=== PATIENT | male | born 1990 | race Caucasian/White ===

== ENCOUNTER 2018-07-26 23:09 | Emergency (ER) | payer BC ==
[2018-07-26 23:22] VITALS: TEMP 98.4; BMI 29.8
--- NOTE | 2018-07-27 00:48 | PDOC ---
History of Present Illness - General Chief Complaint: Injury Stated Complaint: RIGHT KNEE AND ANKLE INJURY Time Seen by Provider: 07/27/18 00:40 History Source: Patient Exam Limitations: No Limitations - History of Present Illness Initial Comments: HPI: 28 y/o male presenting to [facility] ER complaining of pain and swelling to right foot and ankle, as well as pain to left heel. Pt jumped over a small wall onto a ramp in an attempt to parkour. [place] pain immediately landing on his feet. He fell to the ground but did not strike his head or neck. Denies LOC. Was able to stand and ambulate after incident. Became concerned with the swelling in the right foot. Has not trialed any OCT medications. PCP: None Medical Hx: - Pt denies past medical history. Denies prescription medications. Surgical Hx: - Pt denies past surgical history. Past History - Past Medical History Allergies/Adverse Reactions: Allergies Allergy/AdvReac Type Severity Reaction Status Date / Time No Known Allergies Allergy Verified 07/26/18 23:15 Home Medications: Ambulatory Orders Naproxen [Naprosyn -] 500 mg PO BID PRN 7 Days #14 tablet 07/27/18 COPD: No - Suicide/Smoking/Psychosocial Hx Smoking History: Never smoked Have you smoked in the past 12 months: No Information on smoking cessation initiated: No Hx Alcohol Use: No Drug/Substance Use Hx: No Review of Systems - Review of Systems Able to Perform ROS?: Yes Comments:: In addition to that documented in the HPI above, the additional ROS was obtained : Constitutional: Denies fevers or chills ENMT: Denies sore throat CV: Denies chest pain Resp: Denies SOB GI: Denies vomiting or diarrhea MSK: Per HPI *Physical Exam - Vital Signs Last Vital Signs Temp Pulse Resp BP Pulse Ox 98.4 F 85 18 133/83 100 07/26/18 23:13 07/26/18 23:13 07/26/18 23:13 07/26/18 23:13 07/26/18 23:13 - Physical Exam Comments: Constitutional: Well-developed, well-nourished adult male in no acute distress or obvious discomfort. Found sitting upright on edge of hospital hallway bed. Alert and oriented x4. Answered all questions appropriately and completely. Speech was non-labored, non-pressured. Head: Normocephalic. No obvious external signs of trauma. Cardiovascular / Chest: Regular rate and regular rhythm. No murmur, rubs, clicks, or gallops. Peripheral pulses: radial pulses full. Respiratory: Breathing unlabored. Equal chest rise and fall. Clear to auscultation bilaterally. No stridor, no wheezing, no rhonchi. Neuro: Alert and oriented. Moving all four extremities spontaneously. Plantar flexion and dorsiflexion 5/5 bilaterally. MSK: Swelling and point tenderness to right medial and lateral malleolus. Point tenderness to dorsal surface of left calcaneus. No open wounds. No obvious deformities to tib/fib on either R or L lower extremity. 2+ dorsalis pedis pulse bilaterally. Psych: Affect: appropriate. Mood: normal. ED Treatment Course - RADIOLOGY Radiology Studies Ordered: Category Date Time Status ANKLE & FOOT-LEFT* [RAD] Stat Radiology 07/27/18 00:48 Ordered ANKLE & FOOT-RIGHT* [RAD] Stat Radiology 07/27/18 00:48 Ordered Medical Decision Making - Medical Decision Making *Reviewed vital signs, nursing notes, and prior visit documentation (if available). 28 y/o male with pain/swelling to right foot and ankle, as well as pain to left heel. Ordered Motrin and ice pack for symptom relief. Will obtain plain films to further evaluate. Plain film of right ankle and foot revealed medial and lateral soft tissue swelling without obvious fractures or dislocation per ED wet read. Radiology report pending. Suspect ankle sprain. Plain film of left ankle and foot revealed possible small chip fracture to calcaneus per ED wet read. Radiology report pending. Will apply yue wrap to both ankles and refer to orthopedics for clinic follow up. Prescribed Naproxen for pain control. *DC/Admit/Observation/Transfer Diagnosis at time of Disposition: Right ankle sprain Qualifiers: Encounter type: initial encounter Involved ligament of ankle: unspecified ligament Qualified Code(s): S93.401A - Sprain of unspecified ligament of right ankle, initial encounter Left calcaneal fracture Qualifiers: Encounter type: initial encounter Calcaneus location: unspecified portion of calcaneus Fracture type: closed Fracture alignment: nondisplaced Qualified Code( s): S92.002A - Unspecified fracture of left calcaneus, initial encounter for closed fracture - Discharge Dispostion Disposition: HOME Condition at time of disposition: Good Decision to Admit order: No - Prescriptions Prescriptions: Naproxen [Naprosyn -] 500 mg PO BID PRN 7 Days #14 tablet PRN Reason: Pain - Referrals Referrals: Juaquin Finnegan MD [Staff Physician] - [facility] [place] [facility] [place] [Provider Group] - Patient Instructions Printed Discharge Instructions: DI for Ankle Fracture, DI for Ankle Sprain Additional Instructions: You were seen today for pain and swelling to both of your ankles. The right ankle does not appear to be broken, but it is likely sprained. The left foot appears to have a small chip fracture to the bottom of the calcaneus bone. These injuries will continue to be uncomfortable for the next several days. You can walk on your feet with these injuries but you have been provided crutches if you need assistance. I have sent a prescription for Naproxen to your pharmacy. Take as directed on the package insert. Do not exceed the recommended dosage. Do not take with other NSAID medications such as Ibuprofen, Advil, or Motrin. You need to follow up with an orthopedic doctor. I have placed a referral for you to see Dr. Finnegan. You will need to call to make an appointment. The number is included in this packet. Go to the nearest emergency department if your condition worsens or you feel like you need additional emergency evaluation. Print Language: ETHIOPIAN - Post Discharge Activity Forms/Work/School Notes: Back to Work
--- NOTE | 2018-07-27 00:57 | PDOC ---
Attending Attestation - HPI HPI: 07/27/18 01:42 The patient is a 28 year old male, with no significant past medical history, who presents to the emergency department with, pain and swelling to the right ankle and foot with associated pain to the left heel after jumping over a small wall onto a ramp, landing onto his feet. He denies any trauma to the head/neck or LOC. He denies any recent fevers, chills, headache or dizziness. He denies any recent nausea, vomit, diarrhea or constipation. He denies any recent chest pain or shortness of breath. He denies any recent dysuria, frequency, urgency or hematuria. Allergies: NKDA - Physicial Exam PE: 07/27/18 02:10 GENERAL: Well-appearing, well-nourished. No apparent distress. HEENT: Normocephalic, atraumatic. PERRL, EOM intact. CARDIOVASCULAR: Normal S1, S2. Regular rate and rhythm. PULMONARY: Clear to auscultation bilaterally. ABDOMEN: Soft, non-distended, non-tender. +EXTREMITIES: LLE: L heel pain. Right ankle: Significant swelling and tenderness to both the medial and lateral malleolus. No tenderness to the toes, dorsal aspect of the foot, or to the knee. DP and PT pulses equal and intact. No decrease in sensation or motor function. SKIN: Warm, dry. No rash NEUROLOGICAL: No focal neurological deficits. <Rashaad Romo - Last Filed: 07/27/18 02:10> - Resident Resident Name: Joce Taveras - ED Attending Attestation I have performed the following: I have examined & evaluated the patient, The case was reviewed & discussed with the resident, I agree w/resident's findings & plan, Exceptions are as noted - Medical Decision Making 08/03/18 20:03 pt had ankle sprain and heel spur/ ISAAK bandage and discharged home w ortho follow up <Kristen Sanchez - Last Filed: 08/03/18 20:07> Attestations - Attestations 07/27/18 01:42 Documentation prepared by Rashaad Romo, acting as biomedical technician for Kristen Sanchez MD. <Rashaad Romo - Last Filed: 07/27/18 02:10>
[2018-07-27] MEDS ORDERED: IBUPROFEN 400 MG TABLET (FP) PO ONE ×2 (00:58→02:08)
[2018-07-27 02:37] VITALS: BP 130/80; PULSE 84
== END 2018-07-27 02:25 | disposition home or self-care (01) ==
LOC: JER 23:09
DX: S92.002A Unspecified fracture of left calcaneus, initial encounter for closed fracture (principal); S93.401A Sprain of unspecified ligament of right ankle, initial encounter; X50.0XXA Overexertion from strenuous movement or load, initial encounter; Y93.39 Activity, other involving climbing, rappelling and jumping off; Y92.89 Other specified places as the place of occurrence of the external cause; Y99.8 Other external cause status
CPT/HCPCS: 73610-TC-LT-FY; 73610-TC-RT-FY; 73630-TC-LT; 73630-TC-RT-FY; 99282-25